=== PATIENT | female | born 1995 | race African-American/Black ===

== ENCOUNTER 2022-05-31 15:34 | Emergency (ER) | payer MEDICAID ==
[~2022-05-31] VITALS: Ht 157.5 cm; Wt 54.5 kg
[2022-05-31 15:40] VITALS: BP 113/58
[2022-05-31] MEDS ORDERED: KETOROLAC TROMETHAMINE 10 MG TABLET PO ONE (16:30)
[2022-05-31] MEDS ORDERED: AMOX1TAB16 PO (16:43)
[2022-05-31] MEDS ORDERED: GABA-1181 PO (16:44)
[2022-05-31] MEDS ORDERED: IBUP-2071 PO (16:44)
== END 2022-05-31 16:54 | disposition home or self-care (01) ==
LOC: EMS 15:43
DX: K05.219 Aggressive periodontitis, localized, unspecified severity (principal); F12.90 Cannabis use, unspecified, uncomplicated
CPT/HCPCS: 99283